=== PATIENT | male | born 1975 | race Caucasian/White ===

== ENCOUNTER → 2016-10-25 | Outpatient (CLI) | payer BC ==
--- NOTE | 2016-10-25 17:45 | RADRPT ---
PROCEDURE: CT Head without contrast. CLINICAL INDICATION: BENIGHN NEOPLASM OF BONES OF SKULL AND FACE TECHNIQUE: Continuous axial CT images were obtained from the base of skull to the vertex. No cont rast was administered. The calculated radiation dose measures 720 mGy centimeters. The CTDI measures 44 mGy COMPARISON: 06/29/2015 FINDINGS: The ventricles are symmetric and normal in size. There is no mass effect or midline shift. There i s no abnormal intra-axial or extra-axial fluid collection. There is no evidence of intracranial hem orrhage. There is asymmetric calcification in the right basal ganglia. The bony calvarium is intact. There is unchanged appearance of a lucent expansile lesion within the left parietal calvarium, 1.3 by 0.9 cm. The orbital soft tissue contents are unremarkable. Paranas al sinuses appear clear IMPRESSION: No mass effect or acute intracranial bleed. 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 RPTAT: DD .Aron Ross MD, MD Date Time Electronically viewed and signed by .Aron Ross MD, on 10/25/2016 17:45 .T/
== END | disposition home or self-care (01) ==
LOC: C/S 16:24
PROVIDERS: ATTEND Neurological Surgery
DX: D16.4 Benign neoplasm of bones of skull and face (principal)
CPT/HCPCS: 70450